=== PATIENT | male | born 1995 | race Caucasian/White ===

== ENCOUNTER 2020-02-16 17:30 | Observation (INO) | payer BC ==
--- NOTE | 2020-02-16 17:53 | ED ---
Back Pain HPI - General Chief Complaint: Back Pain/Injury Stated Complaint: Back pain Time Seen by Provider: 02/16/20 17:40 Source: patient Limitations: no limitations - History of Present Illness Initial Comments: 25-year-old male with history of sciatica and chronic back pain presenting to emergency Department with a chief complaint of back pain. 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 Patient reports he's been having issues the past several years with his lower back. Patient states she is to see a chiropractor who diagnosed him with a bulging disc. Patient reports he has been dealing with the pain over the past several months but during the last 2 weeks, he has been back on the [employer] at his job causing increased pain. Patient reports he was at work today and after he came home, the pain again with radiation to his left lower extremity. Patient states this is his typical back pain. He denies any saddle anesthesia, urinary retention with orthopedic incontinence or bowel incontinence. Denies any fevers abdominal pain. - Related Data Home Medications Medication Instructions Recorded Confirmed Ibuprofen [Motrin Ib] 400 - 600 mg PO Q8H PRN 02/16/20 02/16/20 Allergies Allergy/AdvReac Type Severity Reaction Status Date / Time coconut Allergy Unknown Verified 02/16/20 18:04 Mushroom Allergy Unknown Verified 02/16/20 18:04 Penicillins Allergy Unknown Verified 02/16/20 18:04 Review of Systems ROS Statement: Those systems with pertinent positive or pertinent negative responses have been documented in the HPI. ROS Other: All systems not noted in ROS Statement are negative. Past Medical History Past Medical History: No Reported History History of Any Multi-Drug Resistant Organisms: None Reported Past Surgical History: No Surgical Hx Reported Additional Past Surgical History / Comment(s): eye Past Psychological History: Anxiety Smoking Status: Never smoker Past Alcohol Use History: Occasional Past Drug Use History: None Reported General Exam Limitations: no limitations General appearance: alert, in no apparent distress Head exam: Present: atraumatic, normocephalic, normal inspection Eye exam: Present: normal appearance, PERRL, EOMI Pupils: Present: normal accommodation ENT exam: Present: normal exam, normal oropharynx, mucous membranes moist, TM's normal bilaterally, normal external ear exam Neck exam: Present: normal inspection, full ROM. Absent: tenderness Respiratory exam: Present: normal lung sounds bilaterally. Absent: respiratory distress, wheezes, rales Cardiovascular Exam: Present: regular rate, normal rhythm, normal heart sounds. Absent: systolic murmur, diastolic murmur GI/Abdominal exam: Present: soft. Absent: distended, tenderness, guarding, rigid Extremities exam: Present: normal inspection, full ROM Back exam: Present: normal inspection, tenderness, paraspinal tenderness, vertebral tenderness (Left lumbar sacral tenderness). Absent: full ROM Neurological exam: Present: alert, oriented X3 Psychiatric exam: Present: normal affect, normal mood Skin exam: Present: warm, dry, intact, normal color Course Vital Signs 02/16/20 02/16/20 17:32 18:46 Temperature 98.9 F Pulse Rate 96 99 Respiratory 18 18 Rate Blood Pressure 136/78 134/69 O2 Sat by Pulse 100 100 Oximetry Medical Decision Making - Medical Decision Making 25-year-old male presenting to the emergency department with a chief complaint of back pain. On physical examination, patient has left-sided cupola paraspinal tenderness in the lumbosacral region with a positive leg raise test in the left lower extremity. No concerns for cauda equina. No red flags. CT of the lumbar spine reveals moderate disc herniation with central canal stenosis as well as foraminal narrowing. Patient was given 100 g of fentanyl in the ambulance. He was also given additional Dilaudid in the emergency department. Patient is to be symptomatically and is not able to get out of bed. I spoke with Sommer SINGH who will admit for . Patient will also be started on 10 mg of Decadron. Lidoderm patch applied. Case was discussed with Dr. Lawler. Admitting physician is Dr. Mares Orthopedics consulted. Disposition Clinical Impression: Lumbar back pain, Lumbar herniated disc, Intractable low back pain Disposition: ADMITTED IP TO THIS [facility] Condition: Good Instructions (If sedation given, give patient instructions): Acute Low Back Pain (ED) Is patient prescribed a controlled substance at d/c from ED?: No Referrals: None,Stated [Primary Care Provider] - 1-2 days Time of Disposition: 20:00
[2020-02-16] MEDS ORDERED: LIDOCAINE 5% PATCH TOPICAL STA (18:33)
--- NOTE | 2020-02-16 18:37 | CT ---
EXAMINATION TYPE: CT lumbar spine wo con DATE OF EXAM: 02/16/2020 6:12 PM COMPARISON: None available. HISTORY: Low back pain with left leg pain and inability to bear weight CT DLP: 600.1 mGycm Automated exposure control for dose reduction was used. Unenhanced CT of the lumbar spine was performed. Bone and soft tissue window settings are submitted as well as coronal and sagittal reconstructions. There is no acute fracture or subluxation. L1-L2: Normal disc space height. No disc herniation protrusion or central stenosis. No facet joint arthropathy. No evidence for foraminal encroachment. L2-L3: Normal disc space height. No disc herniation protrusion or central stenosis. No facet joint arthropathy. No evidence for foraminal encroachment. L3-L4: Normal disc space height. No disc herniation protrusion or central stenosis. No facet joint arthropathy. No evidence for foraminal encroachment. L4-L5: Mild disc bulge. No significant central canal stenosis. Mild foraminal stenosis. L5-S1: Moderate disc bulge, eccentric to the left which resulted mild to moderate central canal and m oderate to severe left foramina stenosis. IMPRESSION: L5-S1 spondylosis with moderate disc bulge and resultant central canal and left foramina stenosis.
[2020-02-16] MEDS ORDERED: HYDROmorphone 1 MG/ML 1 ML SYRINGE IVP STA (19:05)
[2020-02-16] MEDS ORDERED: HYDROmorphone 0.5 MG/0.5 ML SYRINGE IVP STA (19:14)
[2020-02-16] MEDS ORDERED: HYDROcodone/APAP 5-325MG 1 EACH TAB PO PRN (20:03)
[2020-02-16] MEDS ORDERED: NALOXONE 0.4 MG/ML 1 ML VIAL IV PRN (20:03)
[2020-02-16] MEDS ORDERED: oxyCODONE-APAP 5-325MG 1 EACH TAB PO PRN (20:03)
[2020-02-16] MEDS ORDERED: HYDROmorphone 0.5 MG/0.5 ML SYRINGE IVP PRN (20:03)
[2020-02-16] MEDS ORDERED: ONDANSETRON 4 MG/2 ML VIAL IVP PRN (20:03)
[2020-02-16] MEDS ORDERED: MORPHINE SULFATE 4 MG/ML SYRINGE IV PRN (20:03)
[2020-02-16] MEDS ORDERED: HYDROmorphone 1 MG/ML 1 ML SYRINGE IVP PRN (20:03)
[2020-02-16] MEDS ORDERED: traMADol 50 MG TAB PO PRN (20:03)
[2020-02-16] MEDS ORDERED: DEXAMETHASONE SOD PHOSPHATE 10 MG/ML 1 ML VIAL IV STA (20:03)
[2020-02-16] MEDS ORDERED: LORazepam 2 MG/ML INJ IV PRN (20:03)
--- NOTE | 2020-02-17 08:13 | P.CNOR ---
History of Present Illness - HPI Consult date: 02/17/20 Consult reason: low back pain History of present illness: 25 yo male presents with low back pain and LLE pain and some weakness. 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 He recently had vacation and came back from vacation yesterday to sit and work on the HILO for the whole day which flared up his back. He states pain in his Right lower back, some pain that goes down his RLE to his knee, but rarely past the knee. States some weakness in raising his leg on the L. Denies any numbness/tingling in his genital region. Denies any bowel or bladder issues. No f/c/sob/cp at this time. Review of Systems 14 pt ROS completed and as stated in HPI> All other systems reviewed negative. Past Medical History Past Medical History: No Reported History Additional Past Medical History / Comment(s): sciatica pain History of Any Multi-Drug Resistant Organisms: None Reported Past Surgical History: No Surgical Hx Reported Additional Past Surgical History / Comment(s): torn eyelid stitched when younger Past Anesthesia/Blood Transfusion Reactions: No Reported Reaction Past Psychological History: Anxiety Smoking Status: Never smoker Past Alcohol Use History: Occasional Past Drug Use History: None Reported Medications and Allergies Home Medications Medication Instructions Recorded Confirmed Type Ibuprofen [Motrin Ib] 400 - 600 mg PO Q8H PRN 02/16/20 02/16/20 History Allergies Allergy/AdvReac Type Severity Reaction Status Date / Time coconut Allergy Unknown Verified 02/16/20 18:04 Mushroom Allergy Unknown Verified 02/16/20 18:04 Penicillins Allergy Unknown Verified 02/16/20 18:04 Physical Examination Osteopathic Statement: *. No significant issues noted on an osteopathic structural exam other than those noted in the History and Physical/Consult. AOX3 NAD Non ill, non septic appearace. CN II-XII grossly intact. Normal mentation and thought Appropriate judgement TTP to LLB area and piriformis area. No GT tenderness. Pain with ROM of lumbar spine Neg SLR b/l 5/5 RLE all major muscle groups 5/5 LLE in DF EHL FHL KE, KF. He does have some weakness in HF on the L 4+/5 and plantar flexion 4+/5 on the LLE. SILT L2-S1 no dermatomal deficits + hoffmans b/l 4 beats clonus b/l LE symmetrical 3+ reflexes UE and LE b/l symmetrical. No tensionig signs Negative homans b/l Results CT lumbar spine shows L5-S1 spondylosis with some central and foraminal stenosis, no acute appearing findings. No fractures or dislocaitons noted. overall alignment is maintained. All other disc spaces are within good limits. Assessment and Plan Assessment: 25 yo male with Low back pain L5-S1 spondylosis with moderate stenosis and LLE radiculoapthy. Plan: -Appreciate consult -Pain control -recommend antiinflammatories, decadron, muscle relaxers and pain control as needed -PT for mobilization -Attempt conservative management first, if this fails can get MRI out pt and could try injections. If unable to mobilize and improve in hospital then MRI and pain management consult for LEFT L5-S1 transforaminal injection. -No urgent/emergent surgical intervention at this time. F/u in office
--- NOTE | 2020-02-17 17:35 | P.HPIM ---
History of Present Illness H&P Date: 02/17/20 Chief Complaint: Back pain Patient is a 24-year-old male with a known history of sciatica and chronic back pain came to ER with the complaints of lower back pain and left lower extremity pain. 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 Back pain for the past been having the past 2 months and got worse during the last 2 weeks. When her here as a truck and he has been having increased pain. Patient was at work today and after came home he did have shooting down pain around the left lower extremity. Denied any lower activity weakness are tingling sensation or numbness. No bladder or bowel incontinence. Denied any fever or chills. No increased back pain. No cough or sputum production. No chest pain. No headache or dizziness or lightheadedness. CT lumbar spine showed L5-S1 spondylosis with a moderate disc bulge and resultant central canal and left foraminal stenosis. Review of Systems Constitutional: Patient denies any fever or chills . No generalized weakness or weight loss. Abdomen: Patient denied nausea vomiting and diarrhea and abdominal pain. Cardiovascular: Patient denies any chest pain or short of breath no palpitations. Respiratory: patient denied any cough is from production. No shortness of breath Neurologic: Patient denied any numbness or tingling headache. Musculoskeletal: Patient does have lower back pain and pain along the left lower extremity Skin: Negative Psychiatric: Negative Endocrine: No heat or cold intolerance. No recent weight gain. Genitourinary: No dysuria or hematuria. All other 14 point ROS negative except the above Past Medical History Past Medical History: No Reported History Additional Past Medical History / Comment(s): sciatica pain History of Any Multi-Drug Resistant Organisms: None Reported Past Surgical History: No Surgical Hx Reported Additional Past Surgical History / Comment(s): torn eyelid stitched when younger Past Anesthesia/Blood Transfusion Reactions: No Reported Reaction Past Psychological History: Anxiety Smoking Status: Never smoker Past Alcohol Use History: Occasional Past Drug Use History: None Reported Medications and Allergies Home Medications Medication Instructions Recorded Confirmed Type Ibuprofen [Motrin Ib] 400 - 600 mg PO Q8H PRN 02/16/20 02/16/20 History Allergies Allergy/AdvReac Type Severity Reaction Status Date / Time coconut Allergy Unknown Verified 02/16/20 18:04 Mushroom Allergy Unknown Verified 02/16/20 18:04 Penicillins Allergy Unknown Verified 02/16/20 18:04 Physical Exam Vitals: Vital Signs Temp Pulse Pulse Pulse Resp BP BP 02/17/20 08:00 97.6 F 89 16 126/79 02/17/20 00:41 97.4 F L 90 16 121/70 02/16/20 21:00 98.2 F 77 17 134/79 02/16/20 20:14 86 18 115/80 02/16/20 18:46 99 18 134/69 02/16/20 17:32 98.9 F 96 18 136/78 Pulse Ox 02/17/20 08:00 99 02/17/20 00:41 99 02/16/20 21:00 98 02/16/20 20:14 100 02/16/20 18:46 100 02/16/20 17:32 100 Intake and Output 02/16/20 02/17/20 02/17/20 22:59 06:59 14:59 Intake Total 540 Balance 540 Intake: Oral 540 Other: Voiding Method Toilet # Voids 2 Weight 70.307 kg PHYSICAL EXAMINATION: Patient is lying in the bed comfortably, no acute distress, awake alert and oriented.. HEENT: Normocephalic. Neck is supple. Pupils reactive. Nostrils clear. Oral cavity is moist. Ears reveal no drainage. Neck reveals no JVD, carotid bruits, or thyromegaly. CHEST EXAMINATION: Trachea is central. Symmetrical expansion. Lung brown clear to auscultation and percussion. CARDIAC: Normal S1, S2 with no gallops. No murmurs ABDOMEN: Soft. Bowel sounds normal. No organomegaly. No abdominal bruits. Extremities: reveal no edema. No clubbing or cyanosis Neurologically awake, alert, oriented x3 with well-coordinated movements. No focal deficits noted Skin: No rash or skin lesions. Psychiatric: Coperative. Nonsuicidal Musculoskeletal: No joint swelling or deformity. Patient does have pain with straight leg raising. Thrombosis Risk Factor Assmnt - DVT/VTE Prophylaxis DVT/VTE Prophylaxis: Mechanical Prophylaxis ordered - Choose All That Apply Any of the Below Risk Factors Present?: No Other Risk Factors: No Thrombosis Risk Factor Assessment Level: Very Low Risk Assessment and Plan Assessment: Acute on chronic left lower extremity radiculopathy pain. L5-S1 spondylosis with moderate stenosis. DVT prophylaxis with early ambulation plan: Patient was given IV pain medications and dexamethasone 10 mg IV in the ER. Continue with dexamethasone and muscle relaxants were added. Continue pain management and orthopedic surgery consult. Appreciate recommendations. Continue with conservative management at this time and follow-up.
[2020-02-17] MEDS: dexAMETHasone 4 MG TAB PO SCH (19:59)
[2020-02-17] MEDS: CYCLOBENZAPRINE 5 MG TAB PO PRN (21:32)
[2020-02-18 06:01] LABS: Basophils % (A) 0 %; Eosinophils % (A) 0 %; HCT 42.9 % (39.0-53.0); HGB 15.1 gm/dL (13.0-17.5); Lymphocytes # (A) 0.7 k/uL (1.0-4.8); Lymphocytes % (A) 8 %; MCHC 35.2 g/dL (31.0-37.0); MCV 88.1 fL (80.0-100.0); Mean Platelet Volume 6.7; Monocytes # (A) 0.2 k/uL (0-1.0); Monocytes % (A) 3 %; Neutrophils # (A) 8.1 k/uL (1.3-7.7); Neutrophils % (A) 89 %; Platelet Count 220 k/uL (150-450); RBC 4.87 m/uL (4.30-5.90); RDW 11.6 % (11.5-15.5); WBC 9.1 k/uL (3.8-10.6)
[2020-02-18] MEDS: dexAMETHasone 4 MG TAB PO SCH ×2 (08:20→20:00)
[2020-02-18 10:22] LABS: African American GFR (CKD) 137.1 (60.0-200.0); Calcium 9.9 mg/dL (8.7-10.3); Non-African American GFR(CKD) 118.3 (60.0-200.0); Potassium 4.6 mmol/L (3.5-5.5)
--- NOTE | 2020-02-18 12:19 | P.PAINCN ---
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 Ovalle he recommended left-sided transforaminal epidural steroid injection Past Medical History Past Medical History: No Reported History Additional Past Medical History / Comment(s): sciatica pain History of Any Multi-Drug Resistant Organisms: None Reported Past Surgical History: No Surgical Hx Reported Additional Past Surgical History / Comment(s): torn eyelid stitched when younger Past Anesthesia/Blood Transfusion Reactions: No Reported Reaction Past Psychological History: Anxiety Smoking Status: Never smoker Past Alcohol Use History: Occasional Past Drug Use History: None Reported Medications and Allergies Home Medications Medication Instructions Recorded Confirmed Type Ibuprofen [Motrin Ib] 400 - 600 mg PO Q8H PRN 02/16/20 02/16/20 History Allergies Allergy/AdvReac Type Severity Reaction Status Date / Time coconut Allergy Unknown Verified 02/16/20 18:04 Mushroom Allergy Unknown Verified 02/16/20 18:04 Penicillins Allergy Unknown Verified 02/16/20 18:04 Physical Exam Vitals: Vital Signs Temp Pulse Pulse Resp BP Pulse Ox 02/18/20 07:49 97.6 F 80 16 125/73 98 02/18/20 01:30 97.8 F 94 17 120/76 97 02/17/20 20:00 16 02/17/20 19:52 97.9 F 74 16 131/71 98 02/17/20 14:00 97.9 F 81 16 119/53 99 Intake and Output 02/17/20 02/18/20 02/18/20 22:59 06:59 14:59 Intake Total 540 Balance 540 Intake: Oral 540 Other: Voiding Method Toilet # Voids 3 2 Physical Examinations : -Constitutiona : Cooperative , not in acute distress . -HEENT : nech : supple , no Lymphadenopathy , normal thyroid size . : eyes : no ptosis , no icterus, no photophobia . - neurologic : Cranial nerve II to XII intact , no focal neurological deffecit . -psychatric : alert , oriented X 3 , appropriate affect , intact judgment and insight . -Lymphatic : no Lymphadenopathy . - musculoskeltal : Lumber spine moter stegnth lower extremities ,thigh and legs 5/5 Right side , 4-5/5 Left side deep tendon reflexes : normal Knee Jerk , normal ankle Jerk lumber facet Loading Test = negative Right , positive Left Range of motion of the lumbar spine Flexion 30 degrees, extension 10 degrees strait leg raising test = positive at 30 degree on the left side and is positive at 60 on the right side Fabere test= positive Right , and positive LT .. Results CBC & Chem 7: 02/18/20 05:34 02/18/20 05:34 Labs: Abnormal Lab Results - Last 24 Hours (Table) 02/18/20 02/18/20 Range/Units 05:34 05:34 Neutrophils # 8.1 H (1.3-7.7) k/uL Lymphocytes # 0.7 L (1.0-4.8) k/uL Glucose 129 H (70-110) mg/dL Comments: Computed tomography scan of the lumbar spine L5-S1 lumbar spondylosis and disc bulging,and central canal stenosis ,and severe left foraminal stenosis Assessment and Plan Plan: Assessment and plan= 1-lumbar radiculopathy. 2-lumbar foraminal stenosis. 3-lumbar spondylosis. Patient could benefit from L5-S1 transforaminal epidural steroid injection (LEFT ), procedure risk and benefits and alternatives discussed with the patient and he agreed with the preceding, it will be done tomorrow PQRS Measure Charge Sheet PQRS Narrative: Blood Pressure [Left Arm] 125/73 Blood Pressure 115/80 Pain Intensity [Back] 1 Pain Intensity 3 Pain Scale Used Numeric (1 - 10) Scale Used Numeric (1 - 10) Home Medications: Ambulatory Orders Ibuprofen [Motrin Ib] 400 - 600 mg PO Q8H PRN 02/16/20
[2020-02-18] MEDS: CYCLOBENZAPRINE 5 MG TAB PO PRN (20:00)
[2020-02-19] MEDS: dexAMETHasone 4 MG TAB PO SCH (07:43)
[2020-02-19] MEDS ORDERED: IOPAMIDOL M200 10 ML VIAL ONE (11:10)
[2020-02-19] MEDS ORDERED: methylPREDNISolone ACETATE 40 MG/ML 1 ML VIAL ONE (11:10)
--- NOTE | 2020-02-19 11:23 | P.PCN ---
Date of Procedure: 02/19/20 Procedure(s) Performed: PREOPERATIVE DIAGNOSIS: Lumbar radiculopathy . POSTOPERATIVE DIAGNOSIS: Same as preoperative diagnoses. PROCEDURE 1. Transforaminal epidural steroid injection under fluoroscopic guidance at left L5-S1 level. (Fluoroscopy images stored on file in the radiology Department ) 2. Lumbar epidurogram . ANESTHESIA: Local with 1% lidocaine 3 ml only EBL: Minimal PROCEDURE INDICATION: The patient with low back pain and radiculopathy symptoms unresponsive to conservative treatment. PROCEDURE DESCRIPTION / TECHNIQUE: The patient was seen and identified in the preoperative area. Risks, benefits, complications, and alternatives were discussed with the patient. The patient agreed to proceed with the procedure and signed the consent. IV was started, and vital signs were stable. Patient was taken to the OR and time out was completed. The patient was placed in the prone position on procedure table and a pillow was placed under the abdomen to reduce lumbar lordosis. The lumbosacral area was prepped and draped in the usual sterile fashion. Critical pause was taken. Vital signs were closely monitored during the procedure. Using oblique fluoroscopy, the chin of the `RasheedLul dog at L5-S1 level was identified, and the skin and deeper tissues just below was localized with 1% lidocaine. Subsequently, a 22-gauge 3.5-inch spinal needle was advanced under a tunneled view fluoroscopic guidance just underneath the chin of the `Randally dog at the left L5-S1 Under lateral fluoroscopy, the needle was then advanced to the posterior border of the interforaminal space. After negative aspiration of CSF and blood and with no paresthesias, 1 mL Isovue 200 contrast dye was injected excellent epidurogram and outlining of the nerve root Subsequently, 3 mL of block solution containing 80 mg Depo-Medrol and 2 mL of 0.9% normal saline PF was injected. Needle was removed . At the end of the procedure, skin was cleansed, and bandages were applied. COMPLICATIONS:none DISPOSITION / PLANS: The patient was placed in a supine position and transferred to the recovery area in a stable condition for observation. There was no evidence of lower extremity motor or sensory deficit after the procedure. Patient was discharged from the recovery room after meeting discharge criteria. Home discharge instructions were given to the patient by the staff. The patient was reexamined prior to discharge.
--- NOTE | 2020-02-19 11:49 | FL ---
EXAMINATION TYPE: FL guided pain mgmt statistic DATE OF EXAM: 02/19/2020 HISTORY: Fluoroscopy time 6 seconds of fluoroscopy provided. IMPRESSION: 1. Fluoroscopy time.
[2020-02-19 12:24] VITALS: PULSE 79
[2020-02-19 13:55] VITALS: BP 125/75; RESP 16; TEMP 97.6
--- NOTE | 2020-02-19 15:55 | P.DS ---
Providers Date of admission: 02/16/20 20:23 Expected date of discharge: 02/19/20 Attending physician: Marck Mares Consults: 02/16/20 20:03 Consult Physician Stat Consulting Provider: Roel Ovalle Consult Reason/Comments: Intractable low back pain, moderate disc herniation at L5-S1. Do you want consulting provider notified?: Yes 02/18/20 08:33 Consult Physician Urgent Consulting Provider: Jessica Martinez Consult Reason/Comments: L5-S1 LEFT transforaminal injection Do you want consulting provider notified?: Yes Primary care physician: Stated None Hospital Course: Final diagnosis Acute on chronic left lower extremity radiculopathy pain. L5-S1 spondylosis with moderate stenosis. DVT prophylaxis Discharge disposition Patient is being discharged in a stable condition with guarded prognosis to home. Patient will follow-up with her primary care provider Dr. Malin in the outpatient setting upon discharge. Patient will also follow-up with orthopedic surgery Dr. Ovalle Total time taken is greater than 35 minutes. Hospital course This is a 25-year-old male who was recently admitted with lower back pain and left lower extremity pain and was being closely monitored. 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 Denies any recent injury or trauma although has been having shooting pain down the left lower extremity along with weakness. Denies any numbing or tingling and denies any loss of bowel or bladder. Patient was seen and evaluated by orthopedic surgery along with pain management and underwent transforaminal epidural steroid injection. Further surgical interventions and treatment options discussed although patient would like to continue with conservative management at this time and will follow-up with orthopedic surgery along with pain management in the outpatient setting. Currently no reports of chest pain, shortness of breath, or palpitations. Patient is afebrile. No reports of nausea or vomiting and patient is tolerating diet. Patient will be discharged home today. On exam vital signs are stable. Temp is 97.6F, pulse is 79, respirations are 16, blood pressure is 125/75, oxygen saturation is 98% on room air. Cardio S1, S2 are muffled. Respiratory system shows diminished breath sounds at the bases with no wheezing or rhonchi noted. Abdomen is soft and nontender. Nervous system shows no focal deficits. Please refer to medication reconciliation sheet for a list of medications. Patient Condition at Discharge: Stable Plan - Discharge Summary New Discharge Prescriptions: New Cyclobenzaprine [Flexeril] 5 mg PO TID PRN #12 tab PRN Reason: Muscle Spasm Continue Ibuprofen [Motrin Ib] 400 - 600 mg PO Q8H PRN PRN Reason: Pain Or Fever > 100.5 Discharge Medication List Ibuprofen [Motrin Ib] 400 - 600 mg PO Q8H PRN 02/16/20 [History] Cyclobenzaprine [Flexeril] 5 mg PO TID PRN #12 tab 02/19/20 [Rx] Follow up Appointment(s)/Referral(s): Ashok Malin MD [STAFF PHYSICIAN] - 02/23/20 3:45 pm Roel Ovalle DO [Doctor of Osteopathic Medicine] - 02/26/20 3:40 pm Patient Instructions/Handouts: Cyclobenzaprine (By mouth), Acute Low Back Pain (ED), Epidural Steroid Injection (DC) Discharge/Stand Alone Forms: Anes Pain/Wismer Instructions Discharge Disposition: HOME SELF-CARE
== END 2020-02-19 16:10 | disposition home or self-care (01) ==
LOC: EC 17:30 → 5NMEDONC 20:23
PROVIDERS: ADMIT Hospitalist; ATTEND Hospitalist
DX: M48.061 Spinal stenosis, lumbar region without neurogenic claudication (principal); M51.16 Intervertebral disc disorders with radiculopathy, lumbar region; M51.17 Intervertebral disc disorders with radiculopathy, lumbosacral region; M47.26 Other spondylosis with radiculopathy, lumbar region; M47.27 Other spondylosis with radiculopathy, lumbosacral region; G89.29 Other chronic pain; F41.9 Anxiety disorder, unspecified; R53.1 Weakness; Z79.1 Long term (current) use of non-steroidal anti-inflammatories (NSAID); Z88.0 Allergy status to penicillin; Z91.018 Allergy to other foods; Y99.0 Civilian activity done for income or pay
CPT/HCPCS: 64483; 96374; 96375; 99284; 80048; 85025; 72131; G0378 ×4; J8540 ×3; J1030; J1100; J1170; Q9966

== ENCOUNTER 2020-02-22 21:44 | Emergency (ER) | payer BC ==
[2020-02-22 21:51] VITALS: RESP 20
[2020-02-22] MEDS ORDERED: predniSONE 50 MG TAB PO STA (22:30)
[2020-02-22] MEDS ORDERED: MORPHINE SULFATE 4 MG/ML SYRINGE IM STA (22:30)
[2020-02-22] MEDS ORDERED: KETOROLAC 15 MG/ML 1 ML VIAL IVP STA (22:30)
[2020-02-22] MEDS ORDERED: diphenhydrAMINE 50 MG CAP PO STA (22:30)
[2020-02-22] MEDS ORDERED: ACET/COD 300 MG/30 MG STARTER PACK 6 TAB BTL PO STA (22:31)
--- NOTE | 2020-02-22 22:32 | ED ---
Back Pain HPI - General Chief Complaint: Back Pain/Injury Stated Complaint: Revisit Back Pain Time Seen by Provider: 02/22/20 21:56 Source: patient, family Limitations: no limitations - History of Present Illness Initial Comments: 25-year-old male patient presents to the emergency department today for evaluation of persistent left lower back pain with radiation down the left leg. Patient states that the pain worsens significantly with any type of movement or walking. States the pain goes down the left lateral thigh about snf. States he does have some tingling in his toes. Denies saddle anesthesia or loss of bowel or bladder control. Denies fever or chills. Patient was recently admitted to the hospital for intractable back pain and did have an epidural steroid injection urine area of disc herniation. Patient said he did initially have some relief but the pain has been getting worse for the last 2-3 days. He states that he has been having difficulty with this type of pain for the last 3 years. He does have appointment scheduled with Dr. Ovalle. Patient denies any recent rash, chills, cough, shortness of breath, chest pain, abdominal pain, nausea, vomiting, diarrhea, constipation, dizziness, weakness, hematuria, dysuria, urinary urgency, urinary frequency, headache, visual changes, or any other complaints. - Related Data Home Medications Medication Instructions Recorded Confirmed Ibuprofen [Motrin Ib] 400 - 600 mg PO Q8H PRN 02/16/20 02/16/20 Previous Rx's Medication Instructions Recorded Cyclobenzaprine [Flexeril] 5 mg PO TID PRN #12 tab 02/19/20 predniSONE 50 mg PO DAILY #5 tablet 02/22/20 Allergies Allergy/AdvReac Type Severity Reaction Status Date / Time coconut Allergy Unknown Verified 02/22/20 21:51 Mushroom Allergy Unknown Verified 02/22/20 21:51 Penicillins Allergy Unknown Verified 02/22/20 21:51 Review of Systems ROS Statement: Those systems with pertinent positive or pertinent negative responses have been documented in the HPI. ROS Other: All systems not noted in ROS Statement are negative. Past Medical History Past Medical History: No Reported History Additional Past Medical History / Comment(s): sciatica pain History of Any Multi-Drug Resistant Organisms: None Reported Past Surgical History: No Surgical Hx Reported Additional Past Surgical History / Comment(s): torn eyelid stitched when younger Past Anesthesia/Blood Transfusion Reactions: No Reported Reaction Past Psychological History: Anxiety Smoking Status: Never smoker Past Alcohol Use History: Occasional Past Drug Use History: None Reported General Exam Limitations: no limitations General appearance: alert, in no apparent distress, other (Physical well- developed, well-nourished adult male patient in no acute distress. Vital signs upon presentation are temperature 98.2F, pulse 84, respirations 20, blood pressure 137/89, pulse ox 100% on room air.) Eye exam: Present: normal appearance, PERRL, EOMI. Absent: scleral icterus, conjunctival injection, periorbital swelling ENT exam: Present: normal exam, normal oropharynx, mucous membranes moist Respiratory exam: Present: normal lung sounds bilaterally. Absent: respiratory distress, wheezes, rales, rhonchi, stridor Cardiovascular Exam: Present: regular rate, normal rhythm, normal heart sounds. Absent: systolic murmur, diastolic murmur, rubs, gallop, clicks GI/Abdominal exam: Present: soft, normal bowel sounds. Absent: distended, tenderness, guarding, rebound, rigid Extremities exam: Present: normal inspection, full ROM, normal capillary refill, other (Skin to the lower extremities is pink, warm, dry. Cap refills less than 3 seconds. Pedal and posttibial pulses 2+ and). Absent: tenderness, pedal edema, joint swelling, calf tenderness Back exam: Present: normal inspection. Absent: vertebral tenderness Neurological exam: Present: alert, oriented X3, CN II-XII intact, other (Strength in the lower extremities is 5/5.) Psychiatric exam: Present: normal affect, normal mood Skin exam: Present: warm, dry, intact, normal color. Absent: rash Course Vital Signs 02/22/20 02/22/20 21:47 23:00 Temperature 98.2 F 98.1 F Pulse Rate 84 81 Respiratory 20 20 Rate Blood Pressure 137/89 132/80 O2 Sat by Pulse 100 98 Oximetry Medical Decision Making - Medical Decision Making 25-year-old male patient presents to the emergency department today for evaluation of increased left low back pain with radiation down the left leg. Denies loss of bowel or bladder control. Denies saddle anesthesia. Patient was recently admitted to the hospital and had epidural injection. Does have an appointment coming up with financial assistance specialist. Patient has been taking ibuprofen at home without relief. He was given pain medications here. A prescription for steroids to go home. He is instructed to call his orthopedic doctor first thing in the morning for further instruction. He is instructed follow up with his primary care physician for recheck in 1-2 days. Return parameters were discussed in detail. He verbalizes understanding and agrees with this plan. Disposition Clinical Impression: Chronic back pain Disposition: HOME SELF-CARE Condition: Good Instructions (If sedation given, give patient instructions): Chronic Back Pain (DC) Additional Instructions: Take medications as instructed. Call Dr. Ovalle's office first thing in the morning for further instruction regarding her symptoms. Return to the emergency department for any new, worsening, or concerning symptoms. Prescriptions: predniSONE 50 mg PO DAILY #5 tablet Is patient prescribed a controlled substance at d/c from ED?: No Referrals: Ashok Malin MD [Primary Care Provider] - 1-2 days Time of Disposition: 22:32
[2020-02-22] MEDS ORDERED: KETOROLAC 15 MG/ML 1 ML VIAL IM STA (22:33)
[2020-02-22 23:01] VITALS: BP 132/80; PULSE 81; TEMP 98.1
== END 2020-02-22 23:00 | disposition home or self-care (01) ==
LOC: EC 21:44
DX: G89.29 Other chronic pain (principal); M54.5 Low back pain; Z91.018 Allergy to other foods; Z88.0 Allergy status to penicillin
CPT/HCPCS: 96374; 96372 ×2; 99283; J2270; J1885; J7512

== ENCOUNTER → 2020-03-15 | Outpatient (CLI) | payer BC ==
[2020-03-15 12:53] VITALS: BP 145/92; PULSE 108; RESP 16; TEMP 98.5
--- NOTE | 2020-03-15 13:19 | P.PN ---
Subjective Progress Note Date: 03/15/20 This is a 25-year-old gentleman with history of lower back pain with radiation to the left leg down to the left knee and occasionally to the left foot. The patient feels tingling and numbness in the left but occasionally. He received transforaminal epidural steroid injection at the L5-S1 level on the left side which gave him 60% of pain relief. Most of his pain is during the night and keeps her up at night. He tried to take Motrin and Benadryl before he goes to stay but that did not help his pain during the night. The patient's pain today is 2 out of 10 as she states. Patient denies new-onset weakness, bowel/bladder incontinence, or any other signs or symptoms of cauda equina syndrome. There are no signs of acute intoxication, and no indications of medication diversion or overuse. In addition to above, 13-point review of systems is also negative for chest pain, shortness of breath, changes in vision, changes in hearing, new onset weakness, abdominal pain, diarrhea, extreme fatigue, malaise, fever, skin changes, homicidal or suicidal ideation, or bowel or bladder incontinence. Vital Signs: Reviewed in EMR Gen: AAOx3, NAD HEENT: PERRLA,hearing grossly normal Pulm: resp unlabored Neck: supple, trachea midline Neuro exam of the lower extremities: Decreased left knee flexion and extension to 4 out of 5 and the rest of the muscle strength exam is normal Normal and symmetrical deep tendon reflexes in the lower extremities Straight leg raising test: Positive on the right side Edilson's test: Range of motion of the lumbar spine: Facet loading test: Tenderness in the paravertebral musculature:Mild tenderness in the lumbar paravertebral musculature Neuro: CN II-XII grossly intact, Imaging: Reviewed in EMR/chart Assessment: Left lumbar radiculopathy responsive to transforaminal epidural steroid injection at the L5-S1 level Plan: 1. Explanation: Opioid and psychological risk scores were reviewed. Diagnoses, prognoses, and multiple treatment options including but not limited to physical therapy, interventional therapies, adjuvant medical therapies, narcotic medication therapies, and surgery were discussed with the patient and all questions were answered to the patient's satisfaction. 2. Opioid agreement: Signed with the patient and the patient is warned not to use opioids while driving or before driving and not to combine opioids with benzodiazepines or alcohol. 3. Counseling: The patient was counseled extensively on SMOKING CESSATION, BODY MASS INDEX, EXERCISE. Specifically, the patient was instructed regarding the importance of smoking cessation, obesity, and exercise in the context of both chronic pain and overall health. 4. Procedures: Repeat transforaminal epidural steroid injection at the L5-S1 level on the left side in 1-2 weeks 5. Consultations: None 6. Investigations: None 7. Medications: I'll give the patient prescription for amitriptyline 10 mg at night for 1 week and if there is no improvement in his nocturnal pain then we'll plan on repeating the transforaminal epidural steroid injection at the L5-S1 level on the left side Objective - Vital Signs Vital signs: Vital Signs Temp 98.5 F 03/15/20 12:49 Pulse 108 H 03/15/20 12:49 Resp 16 03/15/20 12:49 BP 145/92 03/15/20 12:49 Pulse Ox 97 03/15/20 12:49
== END | disposition home or self-care (01) ==
LOC: PNWHC3 12:39
PROVIDERS: ATTEND Anesthesiology
DX: M54.16 Radiculopathy, lumbar region (principal); Z79.899 Other long term (current) drug therapy
CPT/HCPCS: 99211